=== PATIENT | female | born 1990 | race African-American/Black ===

== ENCOUNTER 2017-12-16 16:43 | Inpatient (IN) | payer OTHER, SELFPAY ==
[~2017-12-16 16:43] MED LIST: Dexamethasone 20 MG/5 ML VIAL ONE; Lidocaine 1% PF 5 ML VIAL ONE; Ondansetron HCl/PF 4 MG/2 ML Vial ONE; PHENYLEPHRINE-NS 100 MCG/ML 10 ML SYRINGE ONE; PROPOFOL 200 MG/20 ML VIAL ONE; ePHEDrine/0.9% NaCl/PF SYRINGE 50 mg/10 ml ONE
[2017-12-16] MEDS ORDERED: Adacel (T-DAP) 0.5 ML VIAL ONE (16:48)
[2017-12-16] MEDS ORDERED: CEFAZOLIN/Water 2 GM/20 ML SYRINGE ONE (16:48)
[2017-12-16 17:03] LABS: #Basophils 0.1 thou/uL (0.0-0.2); #Eosinphils 0.1 thou/uL (0.0-0.7); #Monocytes 0.5 thou/uL (0.11-0.59); %Eosinophils 1.6 % (0.0-10.0); %Lymphocytes 38.6 % (21.0-51.0); %Monocytes 6.8 % (0.0-10.0); Hemoglobin 12.9 g/dL (12.0-16.0); Mean Corpuscular HGB CONC 34.3 g/dL (32.0-36.0); Mean Corpuscular Hemoglobin 34.6 pg (27.0-31.0); Mean Platelet Volume 8.2 fL (7.4-10.4); Platelet Count 251 thou/uL (130-400); RBC Distribution Width 11.5 % (11.5-14.5); Red Blood Cell (RBC) Count 3.73 mill/uL (4.20-5.40); White Blood Cell (WBC) Count 7.8 thou/uL (4.8-10.8)
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
[2017-12-16 17:33] LABS: ALT (SGPT) 7 U/L (8-55); AST (SGOT) 14 U/L (5-34); Albumin 3.8 g/dL (3.5-5.0); Alkaline Phosphatase 51 U/L (40-150); Anion Gap 10 mmol/L (10-20); BUN (Urea Nitrogen) Less than 4 mg/dL (7.0-18.7); Bilirubin, Total 0.8 mg/dL (0.2-1.2); Calc. Creatinine Clearance 0 mL/min (70-130); Calcium 8.9 mg/dL (7.8-10.44); Carbon Dioxide 24 mmol/L (22-29); Chloride 107 mmol/L (98-107); Estimated GFR-MDRD Greater than 90; Globulin 2.8 g/dL (2.4-3.5); Glucose 99 mg/dL (70-105); Potassium 3.4 mmol/L (3.5-5.1); Protein, Total 6.6 g/dL (6.0-8.3); Sodium 138 mmol/L (136-145)
[2017-12-16 17:51] LABS: BHCG - Serum Negative (NEGATIVE); Pregs Control Background? CLEAR/WHITE (CLR/WHITE); Pregs Control Bar Appear? YES (CONTROL BAR)
[2017-12-16] MEDS ORDERED: Morphine 4 MG/ML VIAL ONE (17:56)
[2017-12-16] MEDS ORDERED: Fentanyl 100 MCG/2 ML VIAL ONE ×2 (18:08→20:40)
--- NOTE | 2017-12-16 18:08 | RAD ---
RIGHT ANKLE THREE VIEW SERIES: INDICATIONS: Posttraumatic deformity. FINDINGS: Redemonstration of a heavily comminuted distal tibial diaphyseal fracture is more or less an adjacent mildly comminuted distal fibular diaphyseal fracture. There is a comminuted fracture centered about the medial malleolus with slight asymmetric widening of the medial ankle mortise. Prominent fractur e plane extension to the distal articular surface of the tibia is present. There is soft tissue tommy a and emphysema present. IMPRESSION: Heavily comminuted distal tibial and mildly comminuted distal fibular fractures, in addition to a com minuted medial malleolar fracture. Prominent intraarticular extension is present at the tibiotalar j oint, and there is associated mild asymmetric widening at the medial ankle mortise. POS: [facility]
[2017-12-16] MEDS ORDERED: NS 0.9% w/ 20 MEQ KCL 1,000 ML IV SCH (18:15)
[2017-12-16] MEDS ORDERED: Promethazine HCl 25 MG/ML VIAL SLOW IVP PRN (18:25)
[2017-12-16] MEDS ORDERED: HYDROmorphone 2 MG/ML VIAL SLOW IVP PRN (18:25)
[2017-12-16] MEDS ORDERED: Ondansetron HCl/PF 4 MG/2 ML Vial IVP PRN (18:25)
[2017-12-16] MEDS ORDERED: Promethazine HCl 25 MG/ML VIAL IM PRN ×2 (18:25→21:05)
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
--- NOTE | 2017-12-16 20:17 | RAD ---
INTRAOPERATIVE FLUOROSCOPIC IMAGING FOR FRACTURE FIXATION OF RIGHT LEG: TECHNIQUE: Eight intraoperative fluoroscopic views submitted. FINDINGS: There is external fixation hardware and traversing screws about the comminuted fracture deformity of the right leg, segmentally visualized and incompletely assessed on the basis of this exam. Correlate with intraoperative assessment. IMPRESSION: Intraoperative fluoroscopic imaging for fracture fixation of the right leg. POS: [facility]
[2017-12-16] MEDS ORDERED: Bisacodyl 10 MG SUPP PR PRN (21:05)
[2017-12-16] MEDS ORDERED: TETANUS AND DIPHTHERIA TOX/PF 0.5 ML DISP.SYRIN IM SCH (21:05)
[2017-12-16] MEDS ORDERED: Fentanyl 100 MCG/2 ML VIAL SLOW IVP PRN (21:05)
[2017-12-16] MEDS ORDERED: traMADol HCl 50 MG TAB PO PRN ×2 (21:05)
[2017-12-16] MEDS ORDERED: Communication Order-Pharmacy FS SCH (21:05)
[2017-12-16] MEDS ORDERED: Dextrose 50% Abboject 50 ML SYRINGE SLOW IVP PRN (21:05)
[2017-12-16] MEDS ORDERED: Dextrose 5% in Water 1,000 ML IV PRN (21:05)
[2017-12-16] MEDS ORDERED: Ondansetron HCl/PF 4 MG/2 ML Vial IV PRN (21:05)
[2017-12-16] MEDS ORDERED: Acetaminophen 325 MG TAB PO PRN (21:05)
[2017-12-16 21:45] VITALS: BMI 24.7
[2017-12-16] MEDS: HYDROcodone/Acetaminophen 5/325 mg Tablet PO PRN (22:17)
[2017-12-17] MEDS: Ketorolac Tromethamine 30 MG/ML VIAL IVP SCH ×4 (00:22→17:11)
[2017-12-17] MEDS: Famotidine/PF 20 mg/2ml Vial SLOW IVP SCH ×2 (00:23→09:38)
[2017-12-17] MEDS: CEFAZOLIN/Water 2 GM/20 ML SYRINGE SLOW IVP SCH ×3 (00:23→17:12)
[2017-12-17 05:40] LABS: %Basophils 0.2 % (0.0-1.0); %Eosinophils 0.1 % (0.0-10.0); Hemoglobin 11.1 g/dL (12.0-16.0); Red Blood Cell (RBC) Count 3.31 mill/uL (4.20-5.40)
[2017-12-17 06:02] LABS: #Lymphocytes 1.7 thou/uL (1.20-3.40); #Monocytes 0.6 thou/uL (0.11-0.59); %Lymphocytes 16.1 % (21.0-51.0); %Monocytes 5.8 % (0.0-10.0); %Neutrophils 77.7 % (42.0-75.0); Mean Corpuscular HGB CONC 33.2 g/dL (32.0-36.0); Mean Corpuscular Hemoglobin 33.5 pg (27.0-31.0); Mean Platelet Volume 8.2 fL (7.4-10.4); Platelet Count 234 thou/uL (130-400); RBC Distribution Width 11.5 % (11.5-14.5); White Blood Cell (WBC) Count 10.3 thou/uL (4.8-10.8)
[2017-12-17 06:23] LABS: Anion Gap 11 mmol/L (10-20); BUN (Urea Nitrogen) 4 mg/dL (7.0-18.7); Calc. Creatinine Clearance 165 mL/min (70-130); Calcium 8.9 mg/dL (7.8-10.44); Carbon Dioxide 21 mmol/L (22-29); Chloride 106 mmol/L (98-107); Estimated GFR-MDRD Greater than 90; Glucose 107 mg/dL (70-105); Magnesium 1.6 mg/dL (1.6-2.6); Phosphorus 3.6 mg/dL (2.3-4.7); Sodium 134 mmol/L (136-145)
[2017-12-17] MEDS ORDERED: Famotidine 20 MG TAB PO SCH (09:45)
[2017-12-17] MEDS: HYDROcodone/Acetaminophen 5/325 mg Tablet PO PRN ×3 (09:52→18:49)
--- NOTE | 2017-12-17 10:39 | CT ---
RIGHT TIBIA FIBULA CT: History Fracture. FINDINGS: Noncontrast CT of the right lower extremity is performed. Reformatted images are submitted for inter pretation. FINDINGS: There is posttraumatic fluid and subcutaneous emphysema. Comminuted fracture involving the distal tibia. Multiple fracture fragments are identified. There i s associated 1 shaft width displacement. Additional fracture lucencies extend into the tibial plafon d. There is a fracture involving the medial and lateral malleoli. The fracture extends into the dis jose fibula. There is a displaced 1 shaft-width fracture. Obvious talar dome fracture is not appreciated. IMPRESSION: Distal fibula and tibia fractures as described above. Fracture lucency extends to the tibial plafond . POS: [facility]
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
[2017-12-17] MEDS ORDERED: Magnesium Oxide 250 MG TAB PO SCH (11:15)
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
[2017-12-17] MEDS: Famotidine 20 MG TAB PO SCH (20:09)
[2017-12-18] MEDS: Ketorolac Tromethamine 30 MG/ML VIAL IVP SCH (00:07)
[2017-12-18] MEDS: CEFAZOLIN/Water 2 GM/20 ML SYRINGE SLOW IVP SCH ×3 (00:07→17:00)
[2017-12-18] MEDS: HYDROcodone/Acetaminophen 5/325 mg Tablet PO PRN ×3 (00:55→15:01)
[2017-12-18] MEDS: Famotidine 20 MG TAB PO SCH ×2 (08:24→20:48)
[2017-12-18] MEDS: Ibuprofen 600 MG TAB PO SCH ×3 (08:24→23:21)
[2017-12-18] MEDS ORDERED: Morphine 4 MG/ML VIAL SLOW IVP SCH (11:00)
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
[2017-12-18] MEDS: Aspirin 81 mg Enteric Coated Tablet PO SCH (20:47)
[2017-12-18] MEDS: Cyclobenzaprine 10 MG TAB PO PRN (21:55)
[2017-12-19] MEDS: HYDROcodone/Acetaminophen 5/325 mg Tablet PO PRN ×2 (00:49→14:13)
[2017-12-19] MEDS: Famotidine 20 MG TAB PO SCH (08:18)
[2017-12-19] MEDS: Aspirin 81 mg Enteric Coated Tablet PO SCH ×2 (08:18→20:17)
[2017-12-19] MEDS: Ibuprofen 600 MG TAB PO SCH ×3 (08:18→23:35)
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
[2017-12-19] MEDS ORDERED: Cyclobenzaprine 10 MG TAB PO PRN (18:00)
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
[2017-12-19] MEDS: Cyclobenzaprine 10 MG TAB PO PRN (20:17)
[2017-12-20] MEDS: Ibuprofen 600 MG TAB PO SCH (08:57)
[2017-12-20] MEDS: Aspirin 81 mg Enteric Coated Tablet PO SCH (08:58)
[2017-12-20 11:17] VITALS: BP 93/59; TEMP 98.6
[2017-12-20] MEDS: HYDROcodone/Acetaminophen 5/325 mg Tablet PO PRN (12:58)
== END 2017-12-20 15:26 | disposition home or self-care (01) | DRG 494 ==
LOC: ERS 16:43 → SDC/OP 18:25 → SJJU 20:48
PROVIDERS: ADMIT Orthopaedic Surgery; ATTEND Orthopaedic Surgery
PROC: 0J9Q0ZZ Drainage of Right Foot Subcutaneous Tissue and Fascia, Open Approach (ICD-10-PCS; principal; 2017-12-16)
PROC: 0QSG05Z Reposition Right Tibia with External Fixation Device, Open Approach (ICD-10-PCS; 2017-12-16)
PROC: 0JQQ0ZZ Repair Right Foot Subcutaneous Tissue and Fascia, Open Approach (ICD-10-PCS; 2017-12-16)
DX: S82.891B Other fracture of right lower leg, initial encounter for open fracture type I or II (principal); E87.6 Hypokalemia; F32.9 Major depressive disorder, single episode, unspecified; J45.909 Unspecified asthma, uncomplicated; V29.40XA Motorcycle driver injured in collision with unspecified motor vehicles in traffic accident, initial encounter; F17.210 Nicotine dependence, cigarettes, uncomplicated; F12.90 Cannabis use, unspecified, uncomplicated; Z79.899 Other long term (current) drug therapy
CPT/HCPCS: 36415; 71045; 76001; 76377; 80048; 80053; 83735; 84100; 84703; 85025; 86850; 86900; 86901; 90471; 90715; 93005; 96374; 96375; C1713; G0390; G8978-GP-CJ; G8979-GP-CH; G8987-GO-CI; G8988-GO-CI; G8989-GO-CI; J1100; J1885; J2001; J2270; J2405; J2704; J3010; S0028

== ENCOUNTER 2017-12-21 14:54 | Emergency (ER) | payer SELFPAY ==
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
== END 2017-12-21 16:19 | disposition home or self-care (01) ==
LOC: ERS 14:54
DX: S82.201A Unspecified fracture of shaft of right tibia, initial encounter for closed fracture (principal); S82.401A Unspecified fracture of shaft of right fibula, initial encounter for closed fracture; M96.830 Postprocedural hemorrhage of a musculoskeletal structure following a musculoskeletal system procedure; J45.909 Unspecified asthma, uncomplicated; F32.9 Major depressive disorder, single episode, unspecified; F17.210 Nicotine dependence, cigarettes, uncomplicated; X58.XXXA Exposure to other specified factors, initial encounter
CPT/HCPCS: 29505

== ENCOUNTER 2017-12-24 07:35 | Emergency (ER) | payer SELFPAY | END 2017-12-24 08:55 | disposition home or self-care (01) | LOC: ERS 07:35 | DX: M79.661 Pain in right lower leg (principal); J45.909 Unspecified asthma, uncomplicated; F32.9 Major depressive disorder, single episode, unspecified; Z79.82 Long term (current) use of aspirin; Z79.899 Other long term (current) drug therapy | CPT/HCPCS: 99283 ==

== ENCOUNTER 2018-01-01 13:30 | Inpatient (IN) | payer OTHER, SELFPAY ==
[2018-01-01 13:23] VITALS: BMI 22.7
[2018-01-02] MEDS ORDERED: Midazolam HCl 2 mg/2 ml Vial ONE ×2 (09:16→10:10)
[2018-01-02] MEDS ORDERED: Fentanyl 100 MCG/2 ML VIAL ONE ×2 (09:16→10:10)
[2018-01-02] MEDS ORDERED: CEFAZOLIN/Water 2 GM/20 ML SYRINGE ONE (10:09)
[2018-01-02] MEDS ORDERED: Promethazine HCl 25 MG/ML VIAL IM PRN ×2 (11:00→15:12)
[2018-01-02] MEDS ORDERED: Ropivacaine HCl/PF 1,100 MG in Sodium Chloride 0.9% 440 ML NERVE BLCK SCH (11:00)
[2018-01-02] MEDS ORDERED: Zolpidem Tartrate 5 MG TAB PO PRN (11:00)
[2018-01-02] MEDS ORDERED: traMADol HCl 50 MG TAB PO PRN ×4 (11:00→14:35)
[2018-01-02] MEDS ORDERED: Ondansetron HCl/PF 4 MG/2 ML Vial IVP PRN ×2 (11:00→15:12)
[2018-01-02] MEDS ORDERED: Fentanyl 100 MCG/2 ML VIAL IV PRN (11:01)
[2018-01-02] MEDS ORDERED: Bupivacaine 0.25% HCL 30 ML VIAL ONE (11:02)
[2018-01-02] MEDS ORDERED: HYDROcodone/Acetaminophen 7.5/325 mg Tablet PO PRN ×2 (11:02)
[2018-01-02] MEDS ORDERED: Ropivacaine 0.5% HCl/PF (150 MG/30 ML VIAL) ONE (11:02)
[2018-01-02] MEDS ORDERED: Lidocaine 1% PF 5 ML VIAL ONE (12:56)
[2018-01-02] MEDS ORDERED: Dexamethasone 20 MG/5 ML VIAL ONE (12:56)
[2018-01-02] MEDS ORDERED: PROPOFOL 200 MG/20 ML VIAL ONE (12:56)
[2018-01-02] MEDS ORDERED: Ondansetron HCl/PF 4 MG/2 ML Vial ONE (12:56)
[2018-01-02] MEDS ORDERED: Fentanyl 100 MCG/2 ML VIAL SLOW IVP PRN (14:35)
[2018-01-02] MEDS ORDERED: HYDROcodone/Acetaminophen 10/325 mg Tablet PO PRN ×2 (14:35)
[2018-01-02] MEDS ORDERED: Acetaminophen 325 MG TAB PO PRN (14:35)
[2018-01-02] MEDS ORDERED: Acetaminophen/Codeine 30-300mg Tablet PO PRN (14:35)
[2018-01-02] MEDS ORDERED: Ondansetron HCl/PF 4 MG/2 ML Vial IV PRN (14:35)
[2018-01-02] MEDS ORDERED: Communication Order-Pharmacy FS SCH (14:45)
[2018-01-02] MEDS ORDERED: Promethazine HCl 25 MG/ML VIAL SLOW IVP PRN (15:12)
[2018-01-02] MEDS: Ketorolac Tromethamine 30 MG/ML VIAL IVP SCH ×3 (15:56→23:38)
[2018-01-02] MEDS: CEFAZOLIN/Water 2 GM/20 ML SYRINGE SLOW IVP SCH (17:28)
[2018-01-02] MEDS: Aspirin 81 mg Enteric Coated Tablet PO SCH (21:38)
[2018-01-03] MEDS: CEFAZOLIN/Water 2 GM/20 ML SYRINGE SLOW IVP SCH ×3 (03:41→17:10)
[2018-01-03 05:06] LABS: #Lymphocytes 1.3 thou/uL (1.20-3.40); #Monocytes 1.1 thou/uL (0.11-0.59); #Neutrophils 11.4 thou/uL (1.40-6.50); %Lymphocytes 9.4 % (21.0-51.0); %Monocytes 7.7 % (0.0-10.0); %Neutrophils 82.9 % (42.0-75.0); Hemoglobin 10.1 g/dL (12.0-16.0); Mean Corpuscular HGB CONC 33.7 g/dL (32.0-36.0); Mean Corpuscular Volume 97.7 fl (81.0-99.0); Mean Platelet Volume 7.3 fL (7.4-10.4); Platelet Count 422 thou/uL (130-400); RBC Distribution Width 11.3 % (11.5-14.5); Red Blood Cell (RBC) Count 3.07 mill/uL (4.20-5.40); White Blood Cell (WBC) Count 13.7 thou/uL (4.8-10.8)
[2018-01-03] MEDS: Ketorolac Tromethamine 30 MG/ML VIAL IVP SCH ×3 (05:44→17:10)
--- NOTE | 2018-01-03 08:24 | RAD ---
INTRAOPERATIVE IMAGING OF RIGHT TIBIA AND FIBULA: Date: 01-02-18 History: Trauma, open reduction and internal fixation. FINDINGS: Six images are provided demonstrating placement of screw and plate fixation associated with lateral a spect of distal fibula as well as medial and lateral aspect of distal tibia. Markedly comminuted frac tures noted involving medial malleolus, distal fibula, and distal tibia. IMPRESSION: ORIF as above. POS: [facility]
[2018-01-03] MEDS: Aspirin 81 mg Enteric Coated Tablet PO SCH ×2 (09:33→22:38)
[2018-01-03] MEDS: Acetaminophen/Codeine 30-300mg Tablet PO PRN (22:38)
[2018-01-04] MEDS: Ketorolac Tromethamine 30 MG/ML VIAL IVP SCH ×2 (01:01→05:59)
[2018-01-04] MEDS: CEFAZOLIN/Water 2 GM/20 ML SYRINGE SLOW IVP SCH ×3 (02:55→19:08)
[2018-01-04] MEDS: Aspirin 81 mg Enteric Coated Tablet PO SCH ×2 (08:12→21:53)
[2018-01-04] MEDS: Acetaminophen/Codeine 30-300mg Tablet PO PRN ×2 (08:12→21:57)
[2018-01-05] MEDS: Aspirin 81 mg Enteric Coated Tablet PO SCH (08:33)
[2018-01-05] MEDS: Acetaminophen/Codeine 30-300mg Tablet PO PRN (10:19)
[2018-01-05 12:39] VITALS: BP 115/74; TEMP 98.5
== END 2018-01-05 14:50 | disposition home or self-care (01) | DRG 494 ==
LOC: SURG A 01-02 09:01 → EDSTATUS 01-02 13:30 → SURG B 01-02 15:24
PROVIDERS: ADMIT Orthopaedic Surgery; ATTEND Orthopaedic Surgery
PROC: 0QSG04Z Reposition Right Tibia with Internal Fixation Device, Open Approach (ICD-10-PCS; principal; 2018-01-02)
PROC: 0QSJ04Z Reposition Right Fibula with Internal Fixation Device, Open Approach (ICD-10-PCS; 2018-01-02)
PROC: 0QPGX5Z Removal of External Fixation Device from Right Tibia, External Approach (ICD-10-PCS; 2018-01-02)
DX: S82.871D Displaced pilon fracture of right tibia, subsequent encounter for closed fracture with routine healing (principal); V23.4XXD Motorcycle driver injured in collision with car, pick-up truck or van in traffic accident, subsequent encounter; Y92.89 Other specified places as the place of occurrence of the external cause
CPT/HCPCS: 36415; 76001; 85025; C1713; G8978-GP-CJ; G8979-GP-CJ; G8980-GP-CJ; G8987-GO-CI; G8988-GO-CI; G8989-GO-CI; J1100; J1885; J2001; J2250; J2405; J2704; J2795; J3010; J7050; S0020

== ENCOUNTER 2018-03-27 08:30 | Observation (INO) | payer OTHER, SELFPAY ==
[2018-03-30] MEDS ORDERED: CEFAZOLIN/Water 2 GM/20 ML SYRINGE ONE (08:45)
[2018-03-30] MEDS ORDERED: Fentanyl 100 MCG/2 ML VIAL ONE ×4 (09:20→13:14)
[2018-03-30] MEDS ORDERED: Midazolam HCl 2 mg/2 ml Vial ONE (09:20)
[2018-03-30] MEDS ORDERED: traMADol HCl 50 MG TAB PO PRN ×4 (12:33→14:29)
[2018-03-30] MEDS ORDERED: Fentanyl 100 MCG/2 ML VIAL SLOW IVP PRN (12:33)
[2018-03-30] MEDS ORDERED: HYDROcodone/Acetaminophen 10/325 mg Tablet PO PRN ×3 (12:33→14:29)
[2018-03-30] MEDS ORDERED: Communication Order-Pharmacy FS SCH (12:45)
[2018-03-30] MEDS ORDERED: TETANUS AND DIPHTHERIA TOX/PF 0.5 ML DISP.SYRIN IM SCH (12:45)
[2018-03-30] MEDS ORDERED: EPINEPHrine 1 MG/10 ML Abboject SYRINGE ONE (13:06)
[2018-03-30] MEDS ORDERED: ePHEDrine/0.9% NaCl/PF SYRINGE 50 mg/10 ml ONE ×2 (13:08→14:31)
[2018-03-30] MEDS ORDERED: Bupivacaine HCl 0.5%/Epinephrine 1:200,000/PF 30 ml Vial ONE (13:52)
[2018-03-30] MEDS ORDERED: Ropivacaine 0.5% HCl/PF (150 MG/30 ML VIAL) ONE (13:52)
[2018-03-30] MEDS ORDERED: Ropivacaine 0.2% 550 ML 550 ML NERVE BLCK SCH (14:29)
[2018-03-30] MEDS ORDERED: Promethazine HCl 25 MG/ML VIAL IM PRN (14:29)
[2018-03-30] MEDS ORDERED: Ketorolac Tromethamine 30 MG/ML VIAL IVP PRN ×2 (14:29→17:25)
[2018-03-30] MEDS ORDERED: Ondansetron HCl/PF 4 MG/2 ML Vial IVP PRN (14:29)
[2018-03-30] MEDS ORDERED: Zolpidem Tartrate 5 MG TAB PO PRN (14:29)
[2018-03-30] MEDS ORDERED: Fentanyl 100 MCG/2 ML VIAL IV PRN (14:30)
[2018-03-30] MEDS ORDERED: Ondansetron HCl/PF 4 MG/2 ML Vial ONE (14:31)
[2018-03-30] MEDS ORDERED: PHENYLEPHRINE-NS 100 MCG/ML 10 ML SYRINGE ONE (14:31)
[2018-03-30] MEDS ORDERED: Dexamethasone 20 MG/5 ML VIAL ONE (14:31)
[2018-03-30] MEDS ORDERED: Lidocaine 1% PF 5 ML VIAL ONE (14:31)
[2018-03-30] MEDS ORDERED: PROPOFOL 200 MG/20 ML VIAL ONE (14:31)
[2018-03-30] MEDS ORDERED: Ketorolac Tromethamine 30 MG/ML VIAL ONE (14:31)
[2018-03-30 16:12] VITALS: BMI 22.8
[2018-03-30] MEDS: CEFAZOLIN/Water 2 GM/20 ML SYRINGE SLOW IVP SCH ×2 (16:57→22:44)
[2018-03-30] MEDS: Aspirin 81 mg Enteric Coated Tablet PO SCH (21:56)
[2018-03-31] MEDS: HYDROcodone/Acetaminophen 10/325 mg Tablet PO PRN ×3 (01:10→11:37)
[2018-03-31 05:28] LABS: #Eosinphils 0.1 thou/uL (0.0-0.7); #Lymphocytes 2.5 thou/uL (1.20-3.40); #Monocytes 1.1 thou/uL (0.11-0.59); #Neutrophils 7.4 thou/uL (1.40-6.50); %Basophils 0.3 % (0.0-1.0); %Eosinophils 0.6 % (0.0-10.0); %Lymphocytes 22.4 % (21.0-51.0); %Monocytes 9.7 % (0.0-10.0); Hemoglobin 7.8 g/dL (12.0-16.0); Mean Corpuscular HGB CONC 33.8 g/dL (32.0-36.0); Mean Corpuscular Hemoglobin 32.9 pg (27.0-31.0); Mean Corpuscular Volume 97.2 fL (78.0-98.0); Mean Platelet Volume 8.7 fL (7.4-10.4); Platelet Count 222 thou/uL (130-400); RBC Distribution Width 12.1 % (11.5-14.5); Red Blood Cell (RBC) Count 2.36 mill/uL (4.20-5.40)
[2018-03-31] MEDS: Aspirin 81 mg Enteric Coated Tablet PO SCH (08:41)
[2018-03-31 12:25] VITALS: BP 92/58; TEMP 98.5
--- NOTE | 2018-04-05 14:36 | OP ---
DATE OF PROCEDURE: 03/30/2018 PREOPERATIVE DIAGNOSIS: Right distal tibia fracture with delayed union, severely comminuted, status post open fracture. POSTOPERATIVE DIAGNOSIS: Right distal tibia fracture with delayed union, severely comminuted, status post open fracture. SURGICAL PROCEDURES: 1. Bone graft to right distal tibial diaphysis. 2. Bone graft harvest from right intramedullary canal of the femur with the Synthes ONEL system. ANESTHESIA: General. SURGEON: Kris Carmona M.D. DRY PRESS OPERATOR HELPER: Dr. Mayen. COMPLICATIONS: None. IMPLANTS: None. DRAINS: None. ESTIMATED BLOOD LOSS: 200 mL INDICATIONS: The patient is a 28-year-old lady status post severely comminuted open fracture of dist al tibia. This is now status post open reduction internal fixation along with plating of the distal fibula. The patient is going on to a delayed union with no evidence of bridging callus in the lower diaphyseal region of this fracture. As such, we are now going to take the patient back to the operat ing room for anticipated bone grafting. Informed consent has been obtained. I believe all questions answered. PROCEDURE IN DETAIL: After the induction of general anesthesia, the patient was positioned with a sl ight bump under the right buttock to allow for access to the right proximal femur as well as access t o the right anterior tibia. A sterile prep and drape was then performed. Next, the fracture was exp osed using the anterolateral approach, which was the approach for her plating. Once the distal tibia was exposed, there was found to be fibrous tissue, but really no evidence of healing bone whatsoever . There were a few small bony fragments completely devoid of any soft tissue attachment. They were loose. These were removed and discarded. The wound was then irrigated. There was no evidence for i nfection. Next, the proximal thigh was palpated. The tip of the greater trochanter identified and t hen a small incision was made proximal to greater trochanter. Next, a threaded guidewire was inserte d into the piriformis fossa and down into the proximal femoral canal. An opening reamer was then pas sed over this guidewire. Next, a ball-tipped guidewire was passed down the shaft of the femur and th en using the ONEL system, first attempt was made at a 16.5 mm reamer for harvest of bone graft. This proved to be unsuccessful and as such, a 15.5 mm reamer was passed over this guidewire. The amount o f bone graft obtained was not felt to be completely adequate for the void that we are trying to fill and as such, the ONEL bone grafting was mixed with cancellous chips and then the infuse bone morphogen ic protein system was also utilized. The void was then filled with a combination of Infuse sheets wr apped around the mixture of autologous and allograft bone. This was packed in the larger voids of th e distal tibia and then additional graft placed over the top of this. This resulted in filling of al l of the major voids at the nonunion site. The wound was then closed in layers with 0 Vicryl for the fascia, 2-0 Vicryl subcutaneously and sutures for the skin. The ONEL graft site was closed in layers with 0 Vicryl deep, followed by 2-0 Vicryl and elier for the skin. Xeroform gauze and tape dressi ng was applied to the proximal lateral thigh. The lower leg was dressed with Xeroform gauze, Webril and Carlos wrap dressing. The patient was then transferred to recovery room in stable condition. There were no complications and she tolerated the procedure well.
== END 2018-03-31 14:05 | disposition home or self-care (01) ==
LOC: INTOOBSV 03-30 06:53 → SURG A 03-30 06:53
PROVIDERS: ADMIT Orthopaedic Surgery; ATTEND Orthopaedic Surgery
PROC: 0QUG07Z Supplement Right Tibia with Autologous Tissue Substitute, Open Approach (ICD-10-PCS; principal; 2018-03-30)
DX: S82.871 Displaced pilon fracture of right tibia (principal); S82.831D Other fracture of upper and lower end of right fibula, subsequent encounter for closed fracture with routine healing
CPT/HCPCS: 36415; 76001; 85025; 96374; 96375; 96376; A4306; C1713; C1769; G0378; G8978-GP-CI; G8979-GP-CI; G8980-GP-CI; G8987-GO-CI; G8988-GO-CI; G8989-GO-CI; J0171; J0670; J1100; J1885; J2001; J2250; J2405; J2704; J2795; J3010

== ENCOUNTER 2018-11-01 10:41 | Outpatient (CLI) | payer OTHER ==
--- NOTE | 2018-11-01 11:12 | RAD ---
EXAM: 3 views of the right toes HISTORY: COMPARISON: None FINDINGS: There are lucencies seen in the proximal phalanx of the great toe on only one of the images . This could represent a fracture or this could be artifactual. Diffuse soft tissue swelling is seen. No degenerative changes are present. IMPRESSION: Possible proximal phalanx fracture of the great toe. Correlate with point tenderness in this location .
== END 2018-11-01 10:42 | disposition home or self-care (01) ==
LOC: BICRAD 10:41
DX: S99.921A Unspecified injury of right foot, initial encounter (principal)

== ENCOUNTER 2020-06-16 10:54 | Inpatient (IN) | payer OTHER, SELFPAY ==
[2020-06-16] MEDS ORDERED: Ketamine 50 MG/ML (10ML VIAL) ONE (10:59)
[2020-06-16] MEDS ORDERED: Ondansetron PF 4 MG/2 ML Vial ONE (10:59)
[2020-06-16] MEDS ORDERED: Lorazepam 2 MG/ML VIAL ONE (10:59)
--- NOTE | 2020-06-16 11:37 | RAD ---
XR Knee Lt 4 View STANDARD HISTORY: Injury, left knee pain FINDINGS: No fracture or dislocation is identified. No joint effusion is identified.
--- NOTE | 2020-06-16 11:38 | RAD ---
XR Chest 1 View Portable HISTORY: Trauma, chest pain COMPARISON: 02/05/2020 FINDINGS: The heart size is normal. The lungs are well expanded without focal areas of consolidation, pneumothorax or pleural effusions. IMPRESSION: No radiographic evidence of acute cardiopulmonary process.
--- NOTE | 2020-06-16 11:41 | RAD ---
XR Tib Fib Rt Leg 2 View HISTORY: Injury, right leg pain FINDINGS: Postop changes and metallic hardware in the distal tibia and fibula are again seen in good position a nd alignment since 09/24/2018. New acute fractures of the proximal tibia and fibula noted. There is mild angulation and displacement of the acute fractures. The proximal tibial fracture likely extends into the articular surface.
--- NOTE | 2020-06-16 11:46 | RAD ---
AP PELVIS: Date: 06/16/2020 HISTORY: Pelvic injury. FINDINGS: Pelvic ring is intact without evidence of fracture. SI joints are symmetric. No diastasis of the symp hysis. IMPRESSION: Negative AP pelvis. POS: [facility]
[2020-06-16 11:50] LABS: #Eosinphils 0.6 thou/uL (0.0-0.7); #Lymphocytes 2.4 thou/uL (1.20-3.40); #Monocytes 0.5 thou/uL (0.11-0.59); #Neutrophils 6.8 thou/uL (1.40-6.50); %Basophils 0.3 % (0.0-1.0); %Eosinophils 5.7 % (0.0-10.0); %Lymphocytes 23.4 % (21.0-51.0); %Monocytes 4.8 % (0.0-10.0); %Neutrophils 65.8 % (42.0-75.0); Hemoglobin 14.3 g/dL (12.0-16.0); Mean Corpuscular HGB CONC 31.2 g/dL (32.0-36.0); Mean Corpuscular Hemoglobin 31.2 pg (27.0-31.0); Mean Platelet Volume 8.8 fL (7.4-10.4); Platelet Count 266 thou/uL (130-400); RBC Distribution Width 13.2 % (11.5-14.5); Red Blood Cell (RBC) Count 4.59 mill/uL (4.20-5.40); White Blood Cell (WBC) Count 10.3 thou/uL (4.8-10.8)
[2020-06-16] MEDS ORDERED: CEFAZOLIN 2 GM in Premix Bag 1 BAG IVPB SCH (12:00)
[2020-06-16 12:01] LABS: BHCG - Serum Negative (NEGATIVE); Pregs Control Background? CLEAR/WHITE (CLR/WHITE); Pregs Control Bar Appear? YES (CONTROL BAR)
[2020-06-16] MEDS ORDERED: Cyclobenzaprine 10 MG TAB PO PRN (12:08)
[2020-06-16] MEDS ORDERED: traMADol HCl 50 MG TAB PO PRN ×2 (12:08)
[2020-06-16 12:09] LABS: ALT (SGPT) Less than 7 U/L (8-55); AST (SGOT) 16 U/L (5-34); Albumin 3.7 g/dL (3.5-5.0); Alkaline Phosphatase 79 U/L (40-110); Anion Gap 12 mmol/L (10-20); BUN (Urea Nitrogen) 7 mg/dL (7.0-18.7); Bilirubin, Total 0.7 mg/dL (0.2-1.2); Calc. Creatinine Clearance 0 mL/min (70-130); Calcium 8.4 mg/dL (7.8-10.44); Carbon Dioxide 19 mmol/L (22-29); Chloride 109 mmol/L (98-107); Estimated GFR-MDRD Greater than 90; Globulin 3.5 g/dL (2.4-3.5); Glucose 97 mg/dL (70-105); Potassium 3.7 mmol/L (3.5-5.1); Protein, Total 7.2 g/dL (6.0-8.3); Sodium 136 mmol/L (136-145)
[2020-06-16 12:25] LABS: INR-International Normal Ratio 1.1; Prothrombin Time 14.2 sec (12.0-14.7)
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
[2020-06-16 13:32] LABS: SARS-CoV-2 NAA Rapid Test Not Detected (NotDetected)
[2020-06-16] MEDS ORDERED: traMADol HCl 50 MG TAB ONE (16:19)
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
[2020-06-16] MEDS ORDERED: Dextrose 5% in Water 1,000 ML IV PRN (21:31)
[2020-06-16] MEDS ORDERED: Ondansetron PF 4 MG/2 ML Vial IVP PRN (21:31)
[2020-06-16] MEDS ORDERED: Ondansetron ODT 4 MG TAB PO PRN (21:31)
[2020-06-16] MEDS ORDERED: Dextrose 50% Abboject 50 ML SYRINGE SLOW IVP PRN (21:31)
[2020-06-16] MEDS: Acetaminophen 500 MG TAB PO SCH (21:36)
[2020-06-16] MEDS: Ibuprofen 800 MG TAB PO SCH (21:37)
[2020-06-16 21:38] VITALS: BMI 24.3
[2020-06-16] MEDS: Morphine 2 MG/ML VIAL SLOW IVP PRN (21:55)
[2020-06-16] MEDS: Famotidine 20 MG TAB PO SCH (21:55)
[2020-06-16] MEDS: Sodium Chloride 0.9% 1,000 ML IV SCH (21:56)
[2020-06-17] MEDS: Acetaminophen 500 MG TAB PO SCH ×5 (01:00→21:14)
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
[2020-06-17] MEDS: Morphine 2 MG/ML VIAL SLOW IVP PRN ×2 (02:21→10:25)
[2020-06-17] MEDS: Ibuprofen 800 MG TAB PO SCH ×4 (04:56→21:42)
[2020-06-17] MEDS: Sodium Chloride 0.9% 1,000 ML IV SCH ×2 (04:56→08:13)
[2020-06-17 07:32] LABS: #Basophils 0.1 thou/uL (0.0-0.2); #Eosinphils 0.4 thou/uL (0.0-0.7); #Lymphocytes 2.7 thou/uL (1.20-3.40); #Monocytes 0.9 thou/uL (0.11-0.59); #Neutrophils 7.7 thou/uL (1.40-6.50); %Basophils 0.6 % (0.0-1.0); %Eosinophils 3.3 % (0.0-10.0); %Monocytes 7.8 % (0.0-10.0); %Neutrophils 65.4 % (42.0-75.0); Hemoglobin 13.6 g/dL (12.0-16.0); Mean Corpuscular HGB CONC 32.6 g/dL (32.0-36.0); Mean Corpuscular Hemoglobin 33.3 pg (27.0-31.0); Platelet Count 268 thou/uL (130-400); Red Blood Cell (RBC) Count 4.09 mill/uL (4.20-5.40); White Blood Cell (WBC) Count 11.8 thou/uL (4.8-10.8)
[2020-06-17 07:46] LABS: Anion Gap 12 mmol/L (10-20); BUN (Urea Nitrogen) 4 mg/dL (7.0-18.7); Calc. Creatinine Clearance 146 mL/min (70-130); Calcium 8.3 mg/dL (7.8-10.44); Carbon Dioxide 24 mmol/L (22-29); Chloride 105 mmol/L (98-107); Estimated GFR-MDRD Greater than 90; Glucose 92 mg/dL (70-105); Potassium 3.5 mmol/L (3.5-5.1); Sodium 137 mmol/L (136-145)
[2020-06-17] MEDS: Famotidine 20 MG TAB PO SCH ×2 (08:14→21:07)
[2020-06-17] MEDS ORDERED: FLU VACC QS2020-21(6MOS UP)/PF 60 MCG/0.5 ML SYRINGE IM ONE (09:00)
--- NOTE | 2020-06-17 09:44 | RAD ---
4 VIEWS RIGHT KNEE: Date: 06/17/2020 COMPARISON: Left knee radiograph 06/16/2020. HISTORY: Plateau fracture. FINDINGS: Four views of the right knee show an oblique fracture through the proximal aspect of the fibula. Ther e is a fracture of the lateral aspect of the proximal tibia. This fracture extends to the lateral tib ial plateau adjacent to the lateral tibial spine. The fracture is comminuted and the distal aspect of the fracture cannot be completely visualized. There is a moderate knee effusion and moderate surroun ding soft tissue swelling. IMPRESSION: 1. Interarticular lateral tibial plateau fracture. 2. Fibula fracture. POS: [facility]
[2020-06-17] MEDS ORDERED: Morphine 2 MG/ML VIAL ONE (13:17)
[2020-06-17] MEDS ORDERED: Fentanyl 100 MCG/2 ML VIAL ONE ×5 (14:44→19:37)
[2020-06-17] MEDS ORDERED: traMADol HCl 50 MG TAB ONE (18:18)
[2020-06-17] MEDS ORDERED: Meperidine HCl/PF 25 MG/ML VIAL SLOW IVP PRN (18:48)
[2020-06-17] MEDS ORDERED: Promethazine HCl 25 MG/ML VIAL SLOW IVP PRN (18:48)
[2020-06-17] MEDS ORDERED: PACU-Morphine 4MG/ML VIAL SLOW IVP PRN (18:48)
[2020-06-17] MEDS ORDERED: Ondansetron HCl/PF 4 MG/2 ML Vial IVP PRN (18:48)
[2020-06-17] MEDS ORDERED: HYDROmorphone 2 MG/ML VIAL SLOW IVP PRN (18:48)
[2020-06-17] MEDS ORDERED: Morphine Sulfate 2 MG/ML SYRINGE SLOW IVP PRN (18:48)
[2020-06-17] MEDS ORDERED: Promethazine HCl 25 MG/ML VIAL IM PRN (18:48)
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
[2020-06-17] MEDS ORDERED: HYDROmorphone 0.5 MG/0.5 ML SYRINGE ONE (19:15)
[2020-06-17] MEDS ORDERED: Cyclobenzaprine 10 MG TAB PO PRN (20:39)
[2020-06-17] MEDS ORDERED: traMADol HCl 50 MG TAB PO PRN (20:40)
[2020-06-17] MEDS: CEFAZOLIN 2 GM in Premix Bag 1 BAG IVPB SCH (21:41)
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
[2020-06-18] MEDS: Acetaminophen 500 MG TAB PO SCH ×3 (03:17→13:15)
[2020-06-18] MEDS: CEFAZOLIN 2 GM in Premix Bag 1 BAG IVPB SCH (06:29)
[2020-06-18] MEDS: Ibuprofen 800 MG TAB PO SCH ×2 (06:32→13:14)
[2020-06-18] MEDS: Famotidine 20 MG TAB PO SCH (08:37)
[2020-06-18] MEDS: traMADol HCl 50 MG TAB PO PRN ×2 (08:38→13:16)
--- NOTE | 2020-06-18 08:48 | PRG ---
DATE OF SERVICE: 06/18/2020 SUBJECTIVE: The patient is doing fine. She reports adequate pain control. She did sleep last night. She is having no complaints this morning. She has been hemodynamically stable. OBJECTIVE: VITAL SIGNS: Temperature is 98, pulse is 85, respiratory rate is 16, and blood pressure is 106/72. GENERAL: She is alert, lying supine, in no apparent distress. HEENT: Normocephalic, atraumatic. RESPIRATORY: Breathing comfortably. CARDIOVASCULAR: Pulses are palpable peripherally. MUSCULOSKELETAL: The patient's right leg is splinted. She is having warm and well-perfused foot. She can flex and extend the toes. LABORATORY DATA: Hemoglobin is 13.6. IMPRESSION: Status post fixation of comminuted tibia fracture requiring hardware removal. PLAN: At this point, the patient can mobilize with physical therapy. She should be nonweightbearing on the right leg. She needs to elevate the leg. She can discharge to home today if she is comfortable. I would like to see her back in the clinic in approximately 10 days for followup. Job ID: [id number]
[2020-06-18 15:45] VITALS: BP 115/78; TEMP 97.8
== END 2020-06-18 17:50 | disposition home or self-care (01) | DRG 494 ==
LOC: ERS 10:54 → SDC 11:59 → T4-A 11:59 → ERS 12:57 → SDC 21:31 → T4-A 21:31 → UNDOADMIN 06-17 11:00 → T4-A 06-17 11:00 → SURG A 06-17 20:20
PROVIDERS: ADMIT Surgery; ATTEND Surgery
PROC: 0QSG06Z Reposition Right Tibia with Intramedullary Internal Fixation Device, Open Approach (ICD-10-PCS; principal; 2020-06-17)
PROC: 0QPG04Z Removal of Internal Fixation Device from Right Tibia, Open Approach (ICD-10-PCS; 2020-06-17)
DX: S82.141A Displaced bicondylar fracture of right tibia, initial encounter for closed fracture (principal); S82.831A Other fracture of upper and lower end of right fibula, initial encounter for closed fracture; Z20.828 Contact with and (suspected) exposure to other viral communicable diseases; J45.909 Unspecified asthma, uncomplicated; F17.210 Nicotine dependence, cigarettes, uncomplicated; V28.0XXA Motorcycle driver injured in noncollision transport accident in nontraffic accident, initial encounter; Y92.524 Gas station as the place of occurrence of the external cause
CPT/HCPCS: 36415; 71045; 72170; 76000; 80048; 80053; 84703; 85025; 85610; 85730; 90471; 90662; 90732; 93005; 94640; C1713; C1769; G0008; G0009; J0690; J1170; J2060; J2270; J2405; J3010; J7620; U0002